=== PATIENT | male | born 2000 | race Caucasian/White ===

== ENCOUNTER 2021-09-18 14:09 | Emergency (ER) | payer SELFPAY ==
[~2021-09-18] VITALS: Ht 170.2 cm; Wt 75.0 kg
[2021-09-18 14:26] VITALS: BP 140/80
== END 2021-09-18 16:46 | disposition home or self-care (01) ==
LOC: ER 14:17
DX: F41.9 Anxiety disorder, unspecified (principal); T43.625A Adverse effect of amphetamines, initial encounter; Y92.9 Unspecified place or not applicable
CPT/HCPCS: 99283